=== PATIENT | male | born 1960 | race Caucasian/White ===

== ENCOUNTER 2022-06-26 14:35 | Emergency (ER) | payer MEDICAID, OTHER ==
[~2022-06-26] VITALS: Ht 167.6 cm; Wt 75.0 kg
[2022-06-26 14:43] VITALS: BP 145/80
[2022-06-26] MEDS ORDERED: NAPR-1176 MT (15:54)
== END 2022-06-26 16:41 | disposition home or self-care (01) ==
LOC: ER 14:35
DX: S46.201A Unspecified injury of muscle, fascia and tendon of other parts of biceps, right arm, initial encounter (principal); W11.XXXA Fall on and from ladder, initial encounter; Y93.89 Activity, other specified; Y92.89 Other specified places as the place of occurrence of the external cause; Y99.8 Other external cause status
CPT/HCPCS: 81025; 99282; A4565